=== PATIENT | female | born 1980 | race Caucasian/White ===

== ENCOUNTER → 2021-05-18 | Outpatient (CLI) | payer OTHER ==
[~2021-05-18] MED LIST: CEFUROXIME500 MG PO; DELSYM30 MG/5 ML PO; DIFLUCAN150 MG PO; FLONASE 0.05% N16 GM; ZOFRAN4 MG PO
== END ==
LOC: KOH-I 16:11
DX: M25.511 Pain in right shoulder (principal); M54.2 Cervicalgia
CPT/HCPCS: 72040; 73030

== ENCOUNTER 2021-06-09 16:21 | Emergency (ER) | payer OTHER ==
[~2021-06-09] VITALS: Ht 154.9 cm; Wt 108.9 kg
[~2021-06-09 16:21] MED LIST changes: -DELSYM30 MG/5 ML PO; -FLONASE 0.05% N16 GM
[2021-06-09] MEDS ORDERED: ZOFRAN4 MG PO (17:38)
[2021-06-09] MEDS ORDERED: DELSYM30 MG/5 ML PO (17:38)
[2021-06-09] MEDS ORDERED: FLONASE 0.05% N16 GM (17:38)
== END 2021-06-09 19:41 | disposition home or self-care (01) ==
LOC: ER1 16:21
DX: Z23 Encounter for immunization (principal); U07.1 COVID-19; Z90.49 Acquired absence of other specified parts of digestive tract
CPT/HCPCS: 99283; J2405; M0243